=== PATIENT | female | born 1935 | race Caucasian/White ===

== ENCOUNTER 2018-06-05 05:50 | Day surgery (SDC) | payer MEDICARE ==
[2018-06-04 14:05] LABS: BASOPHILS % (AUTO) 0 % (0-1); EOSINOPHILS # (AUTO) 0.1 X10'3 (0-0.9); EOSINOPHILS % (AUTO) 1.4 % (0-6); HEMATOCRIT 37.3 % (35.0-45.0); HEMOGLOBIN 12.2 g/dl (12.0-16.0); LYMPHOCYTES # (AUTO) 1.2 X10'3 (1.1-4.8); LYMPHOCYTES % (AUTO) 13.9 % (21-51); MEAN CORPUSCULAR HGB CONC 32.8 % (33.0-36.5); MEAN CORPUSCULAR VOLUME 91.3 FL (78-98); MONOCYTES # (AUTO) 0.4 X10'3 (0-0.9); MONOCYTES % (AUTO) 4.4 % (2-12); NEUTROPHILS # (AUTO) 6.9 X10'3 (1.8-7.7); NEUTROPHILS % (AUTO) 80.3 % (42-75); PLATELET COUNT 168 X10'3 (140-440); RED BLOOD COUNT 4.08 X10'6 (4.20-5.60); RED CELL DISTRIBUTION WIDTH 14.7 % (11.5-14.5); WHITE BLOOD COUNT 8.6 X10'3 (4.5-11.0)
[2018-06-04 14:14] LABS: ALBUMIN 3.3 G/DL (3.4-5.0); ANION GAP 6 (8-16); BLOOD UREA NITROGEN 35 MG/DL (7-18); BUN/CREATININE RATIO 26.3 (6.6-38.0); CALCIUM 9.2 MG/DL (8.5-10.1); CHLORIDE 108 MMOL/L (99-107); CREATININE 1.33 MG/DL (0.40-0.90); GLUCOSE 147 MG/DL (70-104); POTASSIUM 4.1 MMOL/L (3.5-5.1); SODIUM 143 MMOL/L (135-145); TOTAL CARBON DIOXIDE 29.3 MMOL/L (24-32); eGFR 38 ML/MIN
[2018-06-04 14:29] LABS: INR 1.1 INR; PARTIAL THROMBOPLASTIN TIME 26 SECONDS (22-32); PROTHROMBIN TIME 10.7 SECONDS (9.0-12.0)
[~2018-06-05] VITALS: Ht 154.9 cm; Wt 57.8 kg
[2018-06-05] VITALS (17 sets, daily range): BP systolic 103–171; BP diastolic 39–75
[2018-06-05] MEDS ORDERED: ASPI81TA30 PO (06:29)
[2018-06-05] MEDS ORDERED: ATOR20TA PO (06:29)
[2018-06-05] MEDS ORDERED: METO-539 PO (06:29)
[2018-06-05] MEDS ORDERED: RAMI10CA69 PO (06:29)
[2018-06-05] MEDS ORDERED: OMEG1CAP13 PO (06:29)
[2018-06-05] MEDS ORDERED: diphenhydrAMINE 25mg capsule PO PRN (06:30)
[2018-06-05] MEDS ORDERED: LORazepam 0.5 MG tablet PO PRN (06:30)
[2018-06-05] MEDS ORDERED: normal saline 1000ml 1,000 ML IV SCH (06:30)
[2018-06-05] MEDS ORDERED: heparin 1,000unit/ml 10ml vial 10 ML ONE (07:30)
[2018-06-05] MEDS ORDERED: LIDOcaine 1% 30ml preserv. free vial ONE (07:30)
[2018-06-05] MEDS ORDERED: nitroGLYCERIN-Tridil 50MG/D5W 250 ML IV ONE ×2 (07:30→08:03)
[2018-06-05] MEDS ORDERED: iohexol 350MG/ML 100ml bottle IV ONE ×3 (07:31→08:58)
[2018-06-05] MEDS ORDERED: iohexol 350 MG/ML 50ML vial IV ONE (07:31)
[2018-06-05] MEDS ORDERED: midazolam 2 mg/2 ml injection ONE (07:44)
[2018-06-05] MEDS ORDERED: fentaNYL/PF 50MCG/1 ML 2ML syringe ONE (07:44)
[2018-06-05] MEDS ORDERED: sod bicarbonate 150mEq in D5W 1,150 ML IV ONE (07:50)
[2018-06-05] MEDS ORDERED: acetylcysteine 200 MG/ml 4ml vial PO PRN (07:50)
[2018-06-05] MEDS ORDERED: heparin 25,000 UNIT/250ml bag 250 ML IV ONE (08:44)
[2018-06-05] MEDS ORDERED: clopidogrel 300mg tablet ONE (09:43)
[2018-06-05] MEDS ORDERED: proCHLORperazine 10 MG/2 ml inj IV PRN (10:35)
[2018-06-05] MEDS ORDERED: aspirin 81mg tab.chew PO ONE (10:35)
[2018-06-05] MEDS ORDERED: cyclobenzaprine 10mg tablet PO PRN (10:35)
[2018-06-05] MEDS ORDERED: OXAZEpam 15mg capsule PO PRN (10:35)
[2018-06-05] MEDS ORDERED: acetaminophen 325mg tablet PO PRN (10:35)
[2018-06-05] MEDS ORDERED: magnesium hydroxide 30ml (MOM) UD suspension PO PRN (10:35)
[2018-06-05] MEDS ORDERED: HYDROcodone/acetaminophen 10/325mg tab PO PRN ×2 (10:35)
[2018-06-05] MEDS ORDERED: docusate sod 100mg capsule PO SCH (20:00)
[2018-06-05] MEDS ORDERED: acetylcysteine 200 MG/ml 4ml vial PO SCH (20:00)
[2018-06-06] MEDS ORDERED: clopidogrel 75mg tablet PO SCH (08:00)
[2018-06-06] MEDS ORDERED: aspirin 325mg tablet PO SCH (08:00)
== END 2018-06-05 20:00 | disposition home or self-care (01) ==
LOC: SSTAY O 05:50
PROVIDERS: ATTEND Internal Medicine Cardiovascular Disease
DX: I25.708 Atherosclerosis of coronary artery bypass graft(s), unspecified, with other forms of angina pectoris (principal); I10 Essential (primary) hypertension; E78.5 Hyperlipidemia, unspecified; K21.9 Gastro-esophageal reflux disease without esophagitis; I08.1 Rheumatic disorders of both mitral and tricuspid valves; I25.2 Old myocardial infarction; Z90.89 Acquired absence of other organs; Z88.0 Allergy status to penicillin; Z79.01 Long term (current) use of anticoagulants; Z85.3 Personal history of malignant neoplasm of breast; Z90.710 Acquired absence of both cervix and uterus; Z95.1 Presence of aortocoronary bypass graft; Z87.891 Personal history of nicotine dependence; Z90.49 Acquired absence of other specified parts of digestive tract; Z98.41 Cataract extraction status, right eye; Z98.42 Cataract extraction status, left eye; Z90.11 Acquired absence of right breast and nipple; Z85.41 Personal history of malignant neoplasm of cervix uteri; Z79.82 Long term (current) use of aspirin; Z98.890 Other specified postprocedural states; Z79.899 Other long term (current) drug therapy; Z83.3 Family history of diabetes mellitus; Z82.49 Family history of ischemic heart disease and other diseases of the circulatory system; Z82.61 Family history of arthritis; Z81.8 Family history of other mental and behavioral disorders
CPT/HCPCS: 36415; 80048; 85025; 85347; 85610; 85730; 93005; 93459; 99152; 99153; A6257; C1874; C1887; C9600; J1644; J2250; J3010; J3490; J7030; Q0163; Q9967; 93458; A4620; C1725; C1769

== ENCOUNTER 2021-10-12 06:51 | Day surgery (SDC) | payer MEDICARE ==
[2021-10-11 08:50] LABS: BASOPHILS % (AUTO) 0.4 % (0-1); EOSINOPHILS # (AUTO) 0.1 X10'3 (0-0.9); HEMATOCRIT 37.4 % (35.0-45.0); HEMOGLOBIN 12.4 g/dl (12.0-16.0); LYMPHOCYTES # (AUTO) 1.9 X10'3 (1.1-4.8); LYMPHOCYTES % (AUTO) 28.5 % (21-51); MEAN CORPUSCULAR HEMOGLOBIN 30.1 PG (27.0-31.0); MEAN CORPUSCULAR HGB CONC 33.2 g/dL (33.0-36.5); MEAN CORPUSCULAR VOLUME 90.6 FL (78-98); MEAN PLATELET VOLUME 9.6 FL (7.4-10.4); MONOCYTES # (AUTO) 0.4 X10'3 (0-0.9); MONOCYTES % (AUTO) 5.9 % (2-12); NEUTROPHILS # (AUTO) 4.2 X10'3 (1.8-7.7); NEUTROPHILS % (AUTO) 64.2 % (42-75); PLATELET COUNT 213 X10'3 (140-440); RED BLOOD COUNT 4.13 X10'6 (4.20-5.60); RED CELL DISTRIBUTION WIDTH 14.5 % (11.5-14.5); WHITE BLOOD COUNT 6.6 X10'3 (4.5-11.0)
[2021-10-11 08:52] LABS: ALBUMIN 3.7 G/DL (3.4-5.0); ANION GAP -3 (8-16); BLOOD UREA NITROGEN 21 MG/DL (7-18); BUN/CREATININE RATIO 24.4 (6.6-38.0); CALCIUM 9.4 MG/DL (8.5-10.1); CHLORIDE 106 MMOL/L (99-107); CREATININE 0.86 MG/DL (0.40-0.90); GLUCOSE 105 MG/DL (70-104); SODIUM 134 MMOL/L (135-145); TOTAL CARBON DIOXIDE 30.8 MMOL/L (24-32); eGFR 63 ML/MIN
[2021-10-11 08:54] LABS: POTASSIUM 4.5 MMOL/L (3.5-5.1)
[2021-10-11 08:55] LABS: APTT 25 SECONDS (22-32)
[~2021-10-12] VITALS: Ht 152.4 cm; Wt 48.4 kg
[2021-10-12] VITALS (17 sets, daily range): BP systolic 89–139; BP diastolic 40–73
[~2021-10-12 06:51] MED LIST: ASPI81TA30 PO; ATOR20TA PO; METO-539 PO; OMEG1CAP13 PO; RAMI10CA69 PO
[2021-10-12] MEDS ORDERED: acetylcysteine 200 MG/ml 4ml vial PO SCH (07:10)
[2021-10-12] MEDS ORDERED: normal saline 1,000 ML IV SCH (07:10)
[2021-10-12] MEDS ORDERED: diphenhydrAMINE 25mg capsule PO PRN (07:10)
[2021-10-12] MEDS ORDERED: ATOR40TA PO (07:24)
[2021-10-12] MEDS ORDERED: CLOP75TA33 PO (07:24)
[2021-10-12] MEDS ORDERED: LIDOcaine/PRILOcaine 5gm cream TP ONE (07:50)
[2021-10-12] MEDS ORDERED: LORazepam 0.5 MG tablet PO ONE (07:50)
[2021-10-12] MEDS ORDERED: nitroGLYCERIN-Tridil 50MG/D5W 250 ML IV ONE (08:02)
[2021-10-12] MEDS ORDERED: fentaNYL/PF 50MCG/1 ML 2ML syringe ONE (08:02)
[2021-10-12] MEDS ORDERED: midazolam 1 mg/ML 2ml injection ONE (08:02)
[2021-10-12] MEDS ORDERED: verapamil 2.5 mg/ml inj IV ONE (08:02)
[2021-10-12] MEDS ORDERED: iohexol 350MG/ML 100ml bottle IV ONE ×2 (08:03→09:50)
[2021-10-12] MEDS ORDERED: heparin 1,000unit/ml 10ml vial 10 ML ONE (08:03)
[2021-10-12] MEDS ORDERED: iohexol 350 MG/ML 50ML vial IV ONE ×2 (08:03→10:46)
[2021-10-12] MEDS ORDERED: LIDOcaine 1% (10mg/ml)w/preservative injection 20ml MDV ONE (09:12)
[2021-10-12] MEDS ORDERED: heparin 25,000 UNIT/250ml bag 250 ML IV ONE (09:57)
[2021-10-12] MEDS ORDERED: heparin 1,000 UNITS/NS 500ml 500 ML ONE (10:39)
[2021-10-12] MEDS ORDERED: clopidogrel 300mg tablet ONE (11:19)
[2021-10-12] MEDS ORDERED: HYDROcodone/acetaminophen 5mg/325mg tablet PO PRN (11:50)
[2021-10-12] MEDS ORDERED: HYDROcodone/acetaminophen 10/325mg tab PO PRN (11:50)
--- NOTE | 2021-10-12 14:50 | NUR ---
Dr. Anton called with new orders for pt. Addendum: 10/12/21 at 1747 by Paul Mancera RN Amended: Links added.
[2021-10-12] MEDS ORDERED: acetylcysteine 200 MG/ml 4ml vial PO STA (15:02)
[2021-10-12] MEDS ORDERED: acetylcysteine 200 MG/ml 4ml vial PO ONE (19:30)
[2021-10-12] MEDS ORDERED: ticagrelor 90mg tablet PO SCH (20:00)
[2021-10-13] MEDS ORDERED: clopidogrel 75mg tablet PO SCH (08:00)
== END 2021-10-12 19:55 | disposition home or self-care (01) ==
LOC: SSTAY O 06:51
PROVIDERS: ATTEND Internal Medicine Cardiovascular Disease
DX: R94.39 Abnormal result of other cardiovascular function study (principal); T82.855A Stenosis of coronary artery stent, initial encounter; I25.810 Atherosclerosis of coronary artery bypass graft(s) without angina pectoris; I25.82 Chronic total occlusion of coronary artery; I10 Essential (primary) hypertension; I08.1 Rheumatic disorders of both mitral and tricuspid valves; E78.49 Other hyperlipidemia; Z98.2 Presence of cerebrospinal fluid drainage device; Z79.01 Long term (current) use of anticoagulants; Z79.899 Other long term (current) drug therapy; Z95.5 Presence of coronary angioplasty implant and graft; Z95.1 Presence of aortocoronary bypass graft; Z90.710 Acquired absence of both cervix and uterus; Z98.890 Other specified postprocedural states; Z87.891 Personal history of nicotine dependence; Z90.10 Acquired absence of unspecified breast and nipple; Z88.0 Allergy status to penicillin; Z82.61 Family history of arthritis; Z81.8 Family history of other mental and behavioral disorders; Z83.3 Family history of diabetes mellitus; Z82.49 Family history of ischemic heart disease and other diseases of the circulatory system; Y83.8 Other surgical procedures as the cause of abnormal reaction of the patient, or of later complication, without mention of misadventure at the time of the procedure; Y92.89 Other specified places as the place of occurrence of the external cause
CPT/HCPCS: 36415; 76937; 80048; 85025; 85347; 85610; 85730; 92920; 93005; 93459; 99152; 99153; A6258; C1725; C1751; C1760; C1769; C1892; C1894; J1644; J2250; J3010; J3490; J7030; Q0163; Q9967; A4620; A4663; A5120

== ENCOUNTER 2021-10-14 01:32 | Emergency (ER) | payer MEDICARE ==
[~2021-10-14] VITALS: Ht 152.4 cm; Wt 47.3 kg
[~2021-10-14 01:32] MED LIST changes: -ATOR20TA PO; +ATOR40TA PO; +CLOP75TA33 PO
[2021-10-14] MEDS ORDERED: ticagrelor 90mg tablet PO ONE (01:50)
[2021-10-14] MEDS ORDERED: TICA90TA PO (01:50)
[2021-10-14 02:20] VITALS: BP 140/79
== END 2021-10-14 02:28 | disposition home or self-care (01) ==
LOC: ER 01:33
DX: I11.0 Hypertensive heart disease with heart failure (principal); I50.9 Heart failure, unspecified; I25.10 Atherosclerotic heart disease of native coronary artery without angina pectoris; E78.00 Pure hypercholesterolemia, unspecified; Z76.0 Encounter for issue of repeat prescription; Z85.3 Personal history of malignant neoplasm of breast; Z87.410 Personal history of cervical dysplasia; Z95.5 Presence of coronary angioplasty implant and graft; Z90.49 Acquired absence of other specified parts of digestive tract; Z90.710 Acquired absence of both cervix and uterus; Z87.891 Personal history of nicotine dependence; Z79.82 Long term (current) use of aspirin; Z79.899 Other long term (current) drug therapy; Z79.01 Long term (current) use of anticoagulants; Z91.14 Patient's other noncompliance with medication regimen
CPT/HCPCS: 99281; 99283

== ENCOUNTER 2022-12-08 05:48 | Day surgery (SDC) | payer MEDICARE ==
[2022-12-07 09:07] LABS: BASOPHILS % (AUTO) 0.4 % (0-1); EOSINOPHILS # (AUTO) 0.1 X10'3 (0-0.9); EOSINOPHILS % (AUTO) 1.2 % (0-6); HEMATOCRIT 39.5 % (35.0-45.0); HEMOGLOBIN 12.9 g/dl (12.0-16.0); LYMPHOCYTES # (AUTO) 2.1 X10'3 (1.1-4.8); LYMPHOCYTES % (AUTO) 27.8 % (21-51); MEAN CORPUSCULAR HEMOGLOBIN 30.2 PG (27.0-31.0); MEAN CORPUSCULAR HGB CONC 32.6 g/dL (33.0-36.5); MEAN CORPUSCULAR VOLUME 92.8 FL (78-98); MEAN PLATELET VOLUME 10.1 FL (7.4-10.4); MONOCYTES # (AUTO) 0.5 X10'3 (0-0.9); MONOCYTES % (AUTO) 6.8 % (2-12); NEUTROPHILS # (AUTO) 4.8 X10'3 (1.8-7.7); NEUTROPHILS % (AUTO) 63.8 % (42-75); PLATELET COUNT 175 X10'3 (140-440); RED BLOOD COUNT 4.26 X10'6 (4.20-5.60); RED CELL DISTRIBUTION WIDTH 15.1 % (11.5-14.5); WHITE BLOOD COUNT 7.6 X10'3 (4.5-11.0)
[2022-12-07 09:33] LABS: APTT 26 SECONDS (22-32)
[2022-12-07 09:35] LABS: ALBUMIN 3.9 G/DL (3.4-5.0); ANION GAP 9 (8-16); BLOOD UREA NITROGEN 16 MG/DL (7-18); BUN/CREATININE RATIO 18.2 (10.0-20.0); CALCIUM 9.6 MG/DL (8.5-10.1); CHLORIDE 106 MMOL/L (99-107); CREATININE 0.88 MG/DL (0.40-0.90); GLUCOSE 101 MG/DL (70-104); SODIUM 141 MMOL/L (135-145); TOTAL CARBON DIOXIDE 26.5 MMOL/L (24-32); eGFR 61 ML/MIN
[2022-12-08] VITALS (15 sets, daily range): BP systolic 99–166; BP diastolic 38–70
[~2022-12-08] VITALS: Ht 152.4 cm; Wt 45.4 kg
[~2022-12-08 05:48] MED LIST changes: +OMEG-5 PO; -OMEG1CAP13 PO; +TICA90TA PO
[2022-12-08] MEDS ORDERED: METO-395 PO (06:23)
[2022-12-08] MEDS ORDERED: VITAMIN B (06:23)
[2022-12-08] MEDS ORDERED: normal saline 1,000 ML IV SCH (06:25)
[2022-12-08] MEDS ORDERED: diphenhydrAMINE 25mg capsule PO PRN (06:25)
[2022-12-08] MEDS ORDERED: CHOL400T57 PO (06:25)
[2022-12-08] MEDS ORDERED: LORazepam 0.5 MG tablet PO PRN (06:25)
[2022-12-08] MEDS ORDERED: nitroGLYCERIN-Tridil 50MG/D5W 250 ML IV ONE (07:09)
[2022-12-08] MEDS ORDERED: midazolam 1 mg/ML 2ml injection ONE (07:10)
[2022-12-08] MEDS ORDERED: LIDOcaine 1% (10mg/ml) 2ml vial ONE (07:10)
[2022-12-08] MEDS ORDERED: heparin 1,000unit/ml 10ml vial 10 ML ONE (07:10)
[2022-12-08] MEDS ORDERED: fentaNYL/PF 50MCG/1 ML 2ML syringe ONE (07:10)
[2022-12-08] MEDS ORDERED: verapamil 2.5 mg/ml inj IV ONE (07:10)
[2022-12-08] MEDS ORDERED: iohexol 350MG/ML 100ml bottle IV ONE ×3 (07:10→09:07)
[2022-12-08] MEDS ORDERED: iohexol 350 MG/ML 50ML vial IV ONE (07:10)
[2022-12-08] MEDS ORDERED: LIDOcaine 1% 30ml preserv. free vial ONE (07:34)
[2022-12-08] MEDS ORDERED: heparin 25,000 UNIT/250ml bag 250 ML IV ONE (08:40)
[2022-12-08] MEDS ORDERED: heparin 1,000 UNITS/NS 500ml 500 ML ONE (09:30)
[2022-12-08] MEDS ORDERED: clopidogrel 300mg tablet ONE (09:55)
[2022-12-09] MEDS ORDERED: clopidogrel 75mg tablet PO SCH (08:00)
== END 2022-12-08 18:19 | disposition home or self-care (01) ==
LOC: SSTAY O 05:48
PROVIDERS: ATTEND Internal Medicine Cardiovascular Disease
DX: T82.855A Stenosis of coronary artery stent, initial encounter (principal); I25.810 Atherosclerosis of coronary artery bypass graft(s) without angina pectoris; I10 Essential (primary) hypertension; E78.5 Hyperlipidemia, unspecified; K21.9 Gastro-esophageal reflux disease without esophagitis; I08.1 Rheumatic disorders of both mitral and tricuspid valves; Z85.3 Personal history of malignant neoplasm of breast; Z90.710 Acquired absence of both cervix and uterus; Z90.10 Acquired absence of unspecified breast and nipple; Z98.890 Other specified postprocedural states; Z72.89 Other problems related to lifestyle; Z87.891 Personal history of nicotine dependence; Z88.0 Allergy status to penicillin; Z79.82 Long term (current) use of aspirin; Z79.899 Other long term (current) drug therapy; Z83.3 Family history of diabetes mellitus; Z82.61 Family history of arthritis; Y84.0 Cardiac catheterization as the cause of abnormal reaction of the patient, or of later complication, without mention of misadventure at the time of the procedure; Y92.89 Other specified places as the place of occurrence of the external cause
CPT/HCPCS: 36415; 76937; 80048; 85025; 85347; 85610; 85730; 93005; 93459; 99152; 99153; C1725; C1751; C1769; C1874; C1892; C1894; C9600; J1644; J2250; J3010; J3490; J7030; Q0163; Q9967; A6258; C1760